=== PATIENT | female | born 1955 | race Caucasian/White ===

== ENCOUNTER 2019-11-16 20:05 | Emergency (ER) | payer OTHER ==
--- OUTSIDE RECORDS SUMMARY | 2019-11-16 20:09 | XMS REPORT | Continuity of Care Document ---
:1955 External Reference #:[id number] Author Name Ino Porter, OD Address [address] [place] [address] Care Team Providers Name Role Phone Latanya Mejía MD Care Team Information Medical Coding Instructor [phone] Problems Active Problems Provider Date Vitreous degeneration Esequiel Brown M.D. Onset: 08/13/2014 Myopia Esequiel Brown M.D. Onset: 08/13/2014 Social History Type Date Description Comments Sex Unknown ETOH Use Currently consumes alcohol Tobacco Use Start: Unknown End: Unknown Patient is a former smoker Smoking Status Reviewed: 09/20/19 Patient is a former smoker Allergies, Adverse Reactions, Alerts Active Allergies Reaction Severity Comments Date Latex 06/27/2014 Fiorinal 06/27/2014 Tramadol 08/13/2014 Medications Active Medications SIG Qnty Indications Ordering Provider Date Levothyroxine Sodium Unknown Tablets Triamterene/Hydrochloro Take 1/2 Tablet Unknown thiazide By Mouth Daily 37.5-25mg Tablets Magnesium Unknown 300mg Capsules Calcium Unknown 250mg Capsules Fish Oil Unknown 500mg Capsules Vitamin B-Complex Unknown Tablets Immunizations Description No Information Available Vital Signs Date Vital Result Comment 07/29/2019 9:01am Intraocular Pressure Right Eye 18 mmHg Intraocular Pressure Left Eye 18 mmHg 08/17/2017 8:10am Intraocular Pressure Right Eye 21 mmHg Intraocular Pressure Left Eye 21 mmHg Results Description No Information Available Procedures Date Code Description Status 09/20/2019 301 Contact Lens Fit $25 Completed 07/29/2019 28105 Ophthalmoscopy Subsequent Completed 07/29/2019 58252 Refraction Completed 07/29/2019 81215 Eye Exam Est Intermediate Completed Medical Devices Description No Information Available Encounters Description No Information Available Assessments Date Code Description Provider 09/20/2019 H52.13 Myopia, bilateral Ino German, OD 07/29/2019 H25.093 Other age-related incipient cataract, Esequiel Brown M.D. bilateral 07/29/2019 H43.813 Vitreous degeneration, bilateral Esequiel Brown M.D. 07/29/2019 H52.13 Myopia, bilateral Esequiel Brown M.D. Plan of Treatment 09/20/2019 - Ino Porter, ODH52.13 Myopia, bilateralFollow up:yearly full sooner PRN Functional Status Description No Information Available Mental Status Description No Information Available Referrals Description No Information Available
[2019-11-16 20:21] VITALS: BP 146/85
--- NOTE | 2019-11-16 21:15 | UC ---
Eye Complaint HPI - HPI Summary HPI Summary: PATIENT GOT NEW SOFT CONTACT LENSES A FEW DAYS AGO. THIS MORNING SHE NOTICED REDNESS AND CLEAR DRAINAGE FROM THE LEFT EYE. HAS PHOTOPHOBIA AND SOME EYELID EDEMA. DENIES FOREIGN BODY SENSATION. NO VISUAL DISTURBANCES. STATES SHE DOES NOT SLEEP WITH HER CONTACTS IN. - History of Current Complaint Chief Complaint: UCEye Stated Complaint: EYE COMPLAINT Time Seen by Provider: 11/16/19 20:52 Hx Obtained From: Patient Onset/Duration: Gradual Onset, Lasting Hours, Still Present Timing: Constant Severity Initially: Moderate Severity Currently: Moderate Pain Intensity: 6 Pain Scale Used: 0-10 Numeric Location of Injury: Conjunctiva Aggravating Factor(s): Light Alleviating Factor(s): Nothing Associated Signs And Symptoms: Positive: Photophobia, Drainage (Clear). Negative: Vision Impairment Bilateral, Fever - Allergies/Home Medications Allergies/Adverse Reactions: Allergies Allergy/AdvReac Type Severity Reaction Status Date / Time tramadol Allergy Severe Nausea And Verified 11/16/19 20:15 Vomiting aspirin [From Fiorinal] Allergy Blisters Verified 11/16/19 20:14 butalbital [From Fiorinal] Allergy Blisters Verified 11/16/19 20:14 caffeine [From Fiorinal] Allergy Blisters Verified 11/16/19 20:14 codeine Allergy Blisters Verified 11/16/19 20:14 [From Fiorinal-Codeine #3] Home Medications: Home Medications Calcium Carbonate [Calcium] 1 tab PO DAILY 11/16/19 [History Confirmed 11/16/19] Fish Oil 1,000 mg Softgel 1 tab PO DAILY 11/16/19 [History Confirmed 11/16/19] Magnesium 1 tab PO DAILY 11/16/19 [History Confirmed 11/16/19] Vitamin B Complex CAP* [B Complex CAP*] 1 tab PO DAILY 11/16/19 [History Confirmed 11/16/19] PMH/Surg Hx/FS Hx/Imm Hx Endocrine History: Hypothyroidism Cardiovascular History: Hypertension - Surgical History Surgical History: Yes Surgery Procedure, Year, and Place: right hip replacement - Family History Known Family History: Positive: Non-Contributory - Social History Alcohol Use: Daily Substance Use Type: Prescribed Smoking Status (MU): Never Smoked Tobacco Review of Systems All Other Systems Reviewed And Are Negative: Yes Constitutional: Positive: Negative Eyes: Positive: Drainage, Eye Redness, Photophobia ENT: Positive: Negative Respiratory: Positive: Negative Cardiovascular: Positive: Negative Gastrointestinal: Positive: Negative Physical Exam Triage Information Reviewed: Yes Appearance: Well-Appearing, Well-Nourished, Pain Distress - mild Vital Signs: Initial Vital Signs Temp 98.1 F 11/16/19 20:11 Pulse 72 11/16/19 20:11 Resp 18 11/16/19 20:11 BP 146/85 11/16/19 20:11 Pulse Ox 98 11/16/19 20:11 Vital Signs Reviewed: Yes Eyes: Positive: Conjunctiva Inflamed - LEFT, Discharge - CLEAR TEARING LEFT EYE , Other: - PERRL, EOMI, NO FB Neck: Positive: Supple Respiratory: Positive: No respiratory distress, No accessory muscle use Cardiovascular: Positive: Pulses Normal Abdomen Description: Positive: Soft Musculoskeletal: Positive: No Edema Neurological: Positive: Alert Psychological: Positive: Age Appropriate Behavior Skin: Negative: Rashes Eye Complaint Course/Dx - Course Course Of Treatment: CLINICALLY PATIENT HAS CONJUNCTIVITIS OF HER LEFT EYE. SHE IS QUITE ADAMANT THAT SHE DOES NOT HAVE A FOREIGN BODY OR CORNEAL ABRASION SO FLUORESCEIN STAINING WAS NOT DONE TODAY. I OFFERED PATIENT TRANSFER TO [facility] WHERE THEY WILL HAVE OPHTHALMOLOGY COVERAGE [facility] DOES NOT HAVE ANY OPHTHALMOLOGY THIS WEEKEND. SHE DECLINED STATING SHE WOULD PREFER TO FOLLOW UP WITH DR. BROWN ON Monday. I DISCUSSED WITH HER LOW THRESHOLD FOR GOING TO THE ER IF HER SYMPTOMS WERE TO WORSEN. SHE VERBALIZED UNDERSTANDING. WILL COVER FOR INFECTIOUS PROCESS WITH ERYTHROMYCIN OPHTHALMIC OINTMENT. ADVISED NO CONTACT LENSES UNTIL SYMPTOMS COMPLETELY RESOLVED AND SHE HAS SEEN HER EYE DOCTOR. - Differential Dx/Diagnosis Provider Diagnosis: Conjunctivitis, left eye Discharge ED - Sign-Out/Discharge Documenting (check all that apply): Patient Departure All imaging exams completed and their final reports reviewed: No Studies - Discharge Plan Condition: Stable Disposition: HOME Prescriptions: Erythromycin OPHTH.OINT* [Ilotycin OPHTH.OINT*] 1 applic LEFT EYE QID #1 tube Patient Education Materials: Conjunctivitis (ED) Referrals: Johana Mejía MD [Primary Care Provider] - If Needed Esequiel Brown MD [Medical Doctor] - 2 Days Additional Instructions: USE THE ANTIBIOTIC OINTMENT 4 TIMES DAILY PRESCRIBED. FOLLOW-UP WITH DR. BROWN FIRST THING Monday FOR REEVALUATION. IN THE MEANTIME IF YOUR PAIN WORSENS OR YOU DEVELOP ANY VISUAL DISTURBANCES, HEADACHE, NAUSEA OR ANY OTHER CONCERNING SYMPTOMS GO DIRECTLY TO THE EMERGENCY ROOM. - Billing Disposition and Condition Condition: STABLE Disposition: Home
[2019-11-16] MEDS ORDERED: Erythromycin OPTH OINT* APPLIC OINT LEFT EYE ONE (21:22)
[2019-11-16] MEDS ORDERED: Erythromycin TOPICAL GEL* 30 GM TUBE TOPICAL SCH (22:00)
== END 2019-11-16 21:36 | disposition home or self-care (01) ==
LOC: UCEAST 20:05
DX: H10.9 Unspecified conjunctivitis (principal); E03.9 Hypothyroidism, unspecified; I10 Essential (primary) hypertension; Z88.5 Allergy status to narcotic agent; Z88.8 Allergy status to other drugs, medicaments and biological substances
CPT/HCPCS: 99212; A9270-GY; G0463